=== PATIENT | male | born 1950 | race Caucasian/White ===

== ENCOUNTER 2023-06-16 09:50 | Outpatient (CLI) | payer MEDICARE, SELFPAY ==
--- NOTE | ~2023-06-16 | NM_ITS ---
EXAMINATION: NM pancho stress w perfusion DATE: 06/16/2023 12:03 INDICATION: Other forms of dyspnea. TECHNIQUE: Rest images were obtained following intravenous administration of 10 mCi Tc99m tetrofosmin (Myoview). The patient was infused intravenously with Lexiscan (regadenoson). Then, 29.3 mCi Tc99m t etrofosmin (Myoview) was administered intravenously, and stress images were obtained. Data was recons tructed into short axis and horizontal and vertical long axis SPECT images. Gated SPECT images were a lso obtained. COMPARISON: None. FINDINGS: There is no definite reversible or fixed perfusion abnormality to suggest ischemia or infar ction. There is no segmental wall motion abnormality. Left ventricular ejection fraction measures 7 0%. IMPRESSION: 1. No definite ischemia or infarct. 2. Normal left ventricular ejection fraction measuring 70%. Reviewed, dictated and finalized at location A. TING ADVISER
--- NOTE | 2023-06-16 10:30 | EST_ITS ---
Patient Info Name: Wily Sahu Age: 73 years : 1950 Gender: Male Ht: 71 in Wt: 202 lbs BSA: 2.16 m2 HR: 70 bpm BP: 154 / 85 mmHg Exam Date: 06/16/2023 11:16 AM Exam Location: Echo Lab Patient Status: Outpatient Admit Date: 06/16/2023 Staff Ordering Physician: Clifton Wiley DO Attending Provider: Clifton Wiley DO Exercise Technologist: Nancy Buchanan [facility] Exercise Physician: Clifton Wiley DO Exam Type: CA stress pancho w NM Study Info A regadenoson stress test was performed. Summary 1. 1. Negative lexiscan stress test for ischemic ST changes by ECG criteria. 2. 2. Baseline hypertension. 3. 3. Nuclear scan to follow and will be reported separately. Please correlate with it. 4. 4. Patient informed of the above results. Protocol: Lexiscan Stress ECG Details Stage: REST Duration (min): 2 min : 12 sec HR (bpm): 71 SBP (mmHg): 154 DBP (mmHg): 85 Stage: REST Duration (min): 13 min : 29 sec HR (bpm): 75 SBP (mmHg): 154 DBP (mmHg): 85 Stage: STAGE 1 Duration (min): 1 min : 0 sec HR (bpm): 78 SBP (mmHg): 167 DBP (mmHg): 75 Stage: RECOVERY Duration (min): 1 min : 0 sec HR (bpm): 91 SBP (mmHg): 167 DBP (mmHg): 75 Stage: RECOVERY Duration (min): 2 min : 0 sec HR (bpm): 82 SBP (mmHg): 167 DBP (mmHg): 75 Stage: RECOVERY Duration (min): 3 min : 0 sec HR (bpm): 83 SBP (mmHg): 155 DBP (mmHg): 74 Stage: RECOVERY Duration (min): 3 min : 7 sec HR (bpm): 82 SBP (mmHg): 155 DBP (mmHg): 74 Rest HR: 75 bpm Peak HR: 91 bpm Rest Sys BP: 154 mmHg Peak Sys BP: 167 mmHg Max Pred HR: 149 bpm % Max Pred HR: 61 % Target HR: 127 bpm Max RPP: 15,197 bpm*mmHg Termination Reason: Completed protocol Cardiac Symptoms: Shortness of breath Total Time: 1 min : 0 sec Rest Hidalgo BP: 85 mmHg Peak [place] BP: 75 mmHg Total Dose: 0.4 mg Resting ECG Sinus rhythm with sinus arrhythmia. Stress ECG No ST changes. Arrhythmias None. Report Signatures
== END 2023-06-16 09:51 | disposition home or self-care (01) ==
PROVIDERS: PCP Family Medicine; Visit Provider Internal Medicine Cardiovascular Disease
DX: R06.09 Other forms of dyspnea (principal)
CPT/HCPCS: 78452; 93017; A9502; J2785

== ENCOUNTER 2023-09-01 07:54 | Outpatient (CLI) | payer MEDICARE, SELFPAY ==
[2023-09-01 08:59] LABS: Basophils Percent Auto 0.7 % (0.2-1.2); Eosinophils Absolute Auto 0.2 K/mm3 (0-0.3); Hematocrit 42.8 % (42.0-52.0); Hemoglobin 14.8 g/dL (14.0-18.0); Immature Granulocyte Absolute 0.01 K/mm3 (0.00-0.031); Immature Granulocyte Percent A 0.2 % (0-0.5); Lymphocytes Absolute Auto 1.29 K/mm3 (0.9-3.2); Lymphocytes Percent Auto 21.2 % (18.3-44.2); Mean Corpuscular HGB Conc 34.6 g/dl (32-36); Mean Corpuscular Hemoglobin 31.4 pg (26-34); Mean Corpuscular Volume 90.7 fl (80-100); Mean Platelet Volume 9.1 fl (7.4-10.4); Monocytes Absolute Auto 0.6 K/mm3 (0.1-0.6); Monocytes Percent Auto 9.5 % (2.6-8.5); Neutrophils Percent Auto 65.4 % (45.5-73.1); Platelet Count Result 201 k/mm3 (150-375); Red Blood Count 4.72 M/mm3 (4.6-6.20); Red Cell Distribution Width 12.6 % (11.5-14.5); White Blood Count 6.1 K/mm3 (4.5-10.0)
[2023-09-01 09:10] LABS: Albumin Level 4.5 g/dL (3.5-5.1); Anion Gap 4 mmol/L (4-12); Blood Urea Nitrogen 19 mg/dL (9-20); Calcium 9.1 mg/dL (8.4-10.2); Carbon Dioxide 29 mmol/L (22-30); Chloride 101 mmol/L (98-107); Estimated Glomerular Filt Rate > 60; Glucose 118 mg/dL (65-110); Potassium 4.4 mmol/L (3.4-5.0); Sodium 134 mmol/L (137-145)
[2023-09-01 09:13] LABS: Urine Cotinine NEGATIVE
== END 2023-09-01 07:55 | disposition home or self-care (01) ==
PROVIDERS: PCP Family Medicine; Visit Provider Orthopaedic Surgery
DX: M17.12 Unilateral primary osteoarthritis, left knee (principal); Z01.818 Encounter for other preprocedural examination
CPT/HCPCS: 80048; 80307; 82040; 83036; 85025; 87081; 87147; 87181

== ENCOUNTER 2023-09-18 01:05 | Day surgery (SDC) | payer MEDICARE, SELFPAY ==
[2023-09-01 08:10] VITALS: BMI 28.5
--- NOTE | 2023-09-01 08:25 | PC.NURSE ---
Report to the Outpatient Waiting Room, entrance under the green pavilion located off [facility], at time _0600 on date __09/18/23 . Planned Procedure Time: __729 . Time changes happen often and if your time is changed the preop area will call you the afternoon before. - You and your visitor will be asked to self-screen and do not enter if you have any COVID symptoms. - A mask is optional within the hospital at this time. Patients may have clear liquids (water, carbonated beverages, clear teas, apple juice) until 3 hours prior to surgery( 4:30AM) with a maximum of 20 ounces. - No food from midnight until time of surgery - Infants may have breast milk until 4 hours before surgery, formula 6 hours prior to surgery. - Children will be allowed to drink immediately following surgery. If applicable, please bring a bottle or sippy cup to assist with drinking. Juice, water, soda, and popsicles are readily available. For infants on formula, please bring formula the day of surgery. Pacifiers are allowed. Take the following medications with a SIP of water the morning of surgery: __AMLODIPINE,METOPROLOL DO NOT STOP ANY OF YOUR OTHER PRESCRIPTION MEDICATIONS PRIOR TO SURGERY ?EXCEPT THE FOLLOWING Medications to discontinue per physician __PT STATES HOLD MELOXICAM,NIACIN AND FISH OIL 7 DAYS PRE OP PER DR COULTER. LAST DOSE 09/10/23____HOLD ALL VITAMINS AND SUPPLEMENTS 3 DAYS PRE OP PER ANESTHESIA LAST DOSE TOTAL JOINT CLASS 09/03 23 AT 10 AM Please no make-up, nail algerian, hairspray, perfume, deodorant, or body powder the day of surgery. No jewelry (including any body piercings) or valuables the day of surgery, leave them at home. Please take a shower or bath the night before, or the morning of, surgery with an antibacterial soap. Wear comfortable, loose fitting clothing. Children are encouraged to wear pajamas. - Jewelry must be removed prior to entering the operating room. Rings and piercings that are not removed may be cut off. - The hospital will not accept responsibility for valuables. - Please leave all valuables, including medications, at home the day of surgery. If you are going home after surgery, a licensed commercial driver must drive you home. - NO public transportation without another adult if you receive anesthesia. - We recommend that an adult stay with you for 24 hours following discharge. - We also recommend that you do not drive, make important decision, drink alcoholic beverages, or take any drugs that were not prescribed by your health care provider for at least 24 hours after your discharge time Follow any additional instructions given to you from your surgeon. If you or anyone in your household have experienced Covid symptoms in the past week, please notify your surgeon or the nurse liaison at the phone number below for possible testing. VERBAL AND WRITTEN instructions given to __PATIENT and asked if any additional questions and then verbalized understanding. Patient advised to call surgeon office or pre surgery nurse liaison [phone] if any additional questions.
[2023-09-01 08:44] VITALS: BP 140/78; PULSE 72; RESP 18; TEMP 36.9; O2SAT 99
--- NOTE | 2023-09-17 09:53 | PM.IMHP ---
H&P: HPI History of Present Illness Date/Time: 09/17/23 09:53 Chief Complaint: Severe bicompartmental osteoarthritis left Narrative: patient is a 73-year-old gentleman who presents for total knee arthroplasty left knee. He has a long history of difficulties with his left knee. [facility] view x-rays from 04/12/2023 show Severe medial and lateral compartment bicompartmental osteoarthritis in left knee with grooving in the medial compartment which is mlyg-cy-fadg and less than 1 mm remaining joint space in the lateral compartment. Is been utilizing non operative strategies which are no longer him relief and he would prefer to proceed with total knee arthroplasty rather than continue living with this. He did see the general sales manager before surgery and had a stress test which was negative. He is no longer taking baby aspirin. [facility] Past Medical History Medical History (Updated 09/17/23 @ 09:58 by Da Hood MD) Afib Family History Family History Father Family history of Parkinson's disease Mother Family history of Alzheimer's disease Social History Social History (Updated 08/22/23 @ 07:54 by Joslyn Ramsay CMA) Smoking packs per day: 1.5 Smoking cigarettes per day: 30.0 Years smoked: 5 Smoking pack-years: 7.50 Smoking status: Former smoker Tobacco type: cigarettes Smoking end date: 05/19/71 Alcohol intake: current Drinks per week: 24 Alcohol use details: BEER Substance use type: does not use Do You Feel Safe in your Home?: Yes Lack of Transportation: No Lack of Food: Never True Current Housing: I Have Housing Concerned About Future Housing: No Difficulty Paying Gas/Electric Bills: No Difficulty Paying for Meds: No Currently Unemployed: No Education: High School Diploma/GED Difficulty w/ Childcare or Family Care: No Living arrangements: with family Occupation/Education: occupation Additional occupation/education comments: ground maintenance Spiritual care concerns: No Meds Home Medications and Allergies Home Medications Medication Instructions Recorded Confirmed Type amlodipine 5 mg tablet 5 mg PO DAILY 05/30/23 09/01/23 History lisinopril 20 1 tablet PO DAILY 05/30/23 09/01/23 History mg-hydrochlorothiazide 12.5 mg tablet metoprolol succinate 50 mg 50 mg PO DAILY 05/30/23 09/01/23 History tablet,extended release 24 hr omega 0-yws-yoq-fish oil 100 1 cap PO DAILY 08/22/23 09/01/23 History mg-160 mg-1,000 mg capsule (Fish Oil) calcium 500 mg tablet 500 mg PO DAILY 09/01/23 09/01/23 History cholecalciferol (vitamin D3) 125 125 mcg PO DAILY 09/01/23 09/01/23 History mcg (5,000 unit) tablet cyanocobalamin (vitamin B-12) 1,000 mcg PO DAILY 09/01/23 09/01/23 History 1,000 mcg capsule meloxicam 15 mg tablet 15 mg PO DAILY 09/01/23 09/01/23 History niacin 50 mg tablet 50 mg PO DAILY 09/01/23 09/01/23 History vitamin E 100 unit capsule 180 mg PO DAILY 09/01/23 09/01/23 History mupirocin 2 % topical ointment 1 applic topical BID #22 grams 09/08/23 Rx Allergies Allergy/AdvReac Type Severity Reaction Status Date / Time doxycycline Allergy Unknown Rash Verified 09/01/23 08:11 tetracycline Allergy Unknown Rash Verified 09/01/23 08:11 Exam Narrative: On examination he is a pleasant gentleman in no acute distress. He is alert and oriented. He is 5 ft 10 in in height 208 lb. He has a large effusion and positive Ana's exam suggesting prior ACL injury. Mild lateral laxity to varus stress. Range of motion 0-135. Tenderness along the mediolateral joint lines. He has full range of motion of his left hip without discomfort. Negative Stinchfield maneuver. 5/5 quadriceps strength. 2+ dorsalis pedis and posterior artery pulses were palpable. Normal sensation. Skin looked healthy and no lower extremity edema. He walks with minimal limp. Heart and lung auscultatio
--- NOTE | 2023-09-17 12:52 | WPDANESEPPF ---
Anes - Initial Pre Proc Eval Procedure: Operation Date: 09/18/23 07:30 Proposed Procedures p Left Total Knee Arthroplasty - Da Hood MD Date/Time: 09/17/23 12:52 Surgeon: Da Hood MD Pre Op Diagnosis: O A Lt Knee Patient Data Age: 73 Gender: M Height: 1.8 m Weight: 92.9 kg Last Vital Signs Temp 36.9 C 09/01/23 08:44 Pulse 72 09/01/23 08:44 Resp 18 09/01/23 08:44 BP 140/78 09/01/23 08:44 Pulse Ox 99 09/01/23 08:44 O2 Del Method Room Air 09/01/23 08:44 Allergies Allergy/AdvReac Type Severity Reaction Status Date / Time doxycycline Allergy Unknown Rash Verified 09/18/23 06:59 tetracycline Allergy Unknown Rash Verified 09/18/23 06:59 Home Medications Medication Instructions Recorded Confirmed Type amlodipine 5 mg tablet 5 mg PO DAILY 05/30/23 09/01/23 History lisinopril 20 1 tablet PO DAILY 05/30/23 09/01/23 History mg-hydrochlorothiazide 12.5 mg tablet metoprolol succinate 50 mg 50 mg PO DAILY 05/30/23 09/01/23 History tablet,extended release 24 hr omega 8-uvm-kkv-fish oil 100 1 cap PO DAILY 08/22/23 09/01/23 History mg-160 mg-1,000 mg capsule (Fish Oil) calcium 500 mg tablet 500 mg PO DAILY 09/01/23 09/01/23 History cholecalciferol (vitamin D3) 125 125 mcg PO DAILY 09/01/23 09/01/23 History mcg (5,000 unit) tablet cyanocobalamin (vitamin B-12) 1,000 mcg PO DAILY 09/01/23 09/01/23 History 1,000 mcg capsule meloxicam 15 mg tablet 15 mg PO DAILY 09/01/23 09/01/23 History niacin 50 mg tablet 50 mg PO DAILY 09/01/23 09/01/23 History vitamin E 100 unit capsule 180 mg PO DAILY 09/01/23 09/01/23 History Patient hx anesthesia problems: none Family hx anesthesia problems: none Results Review: All pre-operative results and documents have been reviewed as part of the pre-operative evaluation. [facility] Past Medical History Medical History (Updated 09/17/23 @ 12:52 by Memo Null DO) Afib Hypertension Surgical History Surgical History (Updated 09/17/23 @ 12:52 by Memo Null DO) History of tonsillectomy Family History Family History Father Family history of Parkinson's disease Mother Family history of Alzheimer's disease Social History Social History (Updated 08/22/23 @ 07:54 by Joslyn Ramsay CMA) Smoking packs per day: 1.5 Smoking cigarettes per day: 30.0 Years smoked: 5 Smoking pack-years: 7.50 Smoking status: Former smoker Tobacco type: cigarettes Smoking end date: 05/19/71 Alcohol intake: current Drinks per week: 24 Alcohol use details: BEER Substance use type: does not use Do You Feel Safe in your Home?: Yes Lack of Transportation: No Lack of Food: Never True Current Housing: I Have Housing Concerned About Future Housing: No Difficulty Paying Gas/Electric Bills: No Difficulty Paying for Meds: No Currently Unemployed: No Education: High School Diploma/GED Difficulty w/ Childcare or Family Care: No Living arrangements: with family Occupation/Education: occupation Additional occupation/education comments: ground maintenance Spiritual care concerns: No Anes - Eval Final PreProcedure Day of Procedure 09/17/23 12:52 Patient weight: overweight Heart: regular rate and rhythm Lungs: clear to auscultation Airway: Mallampati scale class II Neurological: alert and oriented Last oral intake: >/= 8 hours ASA classification: III Emergent: no Anesthetic plan: proceed Anesthesia type and monitoring: general ETT and standard monitoring Results Review: All pre-operative results and documents have been reviewed as part of the pre-operative evaluation. Informed Consent: The patient's anesthetic plan and its attendant risks and benefits were discussed with the patient/family/POA. Questions were solicited and answers provided to the satisfaction of the patient/family/POA.
[2023-09-18] VITALS (14 sets, daily range): BP systolic 106–141; BP diastolic 63–112; PULSE 60–75; RESP 11–98; TEMP 36.4–36.8; O2SAT 20–100
--- NOTE | ~2023-09-18 | XR_ITS ---
EXAMINATION: [id number] DATE: 09/18/2023 12:03 CDT INDICATION: Left knee arthroplasty TECHNIQUE: 2 views left knee FINDINGS: There is a left total knee arthroplasty in expected position. Subcutaneous gas with fluid and air in the joint are consistent with recent surgery. No evidence of periprosthetic fracture. IMPRESSION: 1. Recent left total knee arthroplasty. Reviewed, dictated and finalized at location B.
[2023-09-18] MEDS: LACTATED RINGERS 1,000 ML 30 ML IV CONT ×2 (06:30→11:09)
[2023-09-18] MEDS: ACETAMINOPHEN 500 MG TABLET 1000 MG PO ×4 (06:30→23:37)
[2023-09-18] MEDS: TRANEXAMIC ACID 1,000MG/ISO100 1,000 MG/100 ML BAG 200 MG IVPB (06:35)
[2023-09-18] MEDS: VANCOMYCIN 1,500 MG/NS 500 ML BAG 250 MG IVPB (06:35)
--- NOTE | 2023-09-18 07:09 | WPDHPUPDATE1 ---
History and Physical Update Update Date/Time: 09/18/23 07:09 History and Physical has been reviewed, including an updated exam of the patient. There are NO changes in the patient's condition. Risks, benefits, and alternatives have been discussed and questions answered. Patient agrees to proceed with procedure.
[2023-09-18] MEDS: ceFAZolin 2 GM/D5W 50 ML 2 GM/50 ML BAG IVPB (07:43)
[2023-09-18] MEDS: SODIUM CHLORIDE 0.9% IV 37.7 ML, MORPHINE SULFATE INJ (*CRX) 2 MG, ROPivacaine HCL 1% 2... INFILTRATE (08:27)
[2023-09-18] MEDS: ceFAZolin SODIUM 1 GM VIAL 3 GM (08:27)
[2023-09-18] MEDS: GENTAMICIN BONE CEMENT REFOBACIN 1 EACH TOPICAL (09:30)
[2023-09-18] MEDS: TRANEXAMIC ACID 1,000 MG/10 ML AMPUL 1000 MG IV PUSH (09:48)
[2023-09-18] MEDS: ceFAZolin SODIUM 1 GM VIAL 2 GM IV PUSH (09:48)
--- NOTE | 2023-09-18 11:02 | W.PM.PROC2 ---
Procedure Note - Detailed Date of Procedure 09/18/23 Pre-op Diagnosis O A Lt Knee Post-op Diagnosis Same Procedure Performed Left total arthroplasty Surgeon Da Hood MD Anesthesia General Description of Procedure Patient was brought to the operating room and spinal anesthesia was administered. He received 2 g of Ancef weight based vancomycin 1 g of TXA preoperatively. The left leg was prepped draped usual fashion. He had flexion only to about 120. Limb was exsanguinated tourniquet elevated to 250 mmHg. A 7 in longitudinal incision was made in the standard parapatellar arthrotomy was utilized. A large effusion with clear fluid measuring 120 cc on the suction canister was evacuated and after this his flexion was much better to 140. In for a patellar fat pad partially excised. He had thick dense white synovium and a anterior synovectomy was performed including the medial and lateral gutters and deep surface of the quadriceps. The patella had osteophytes that were debrided otherwise had normal cartilage thickness except for far medial facet I felt this was most suitable for non resurfacing. He had [id number] degenerative changes both medially and laterally with grooving in the lateral femoral condyle of was fairly extensive complete absence of the ACL. A guide linnea was inserted down the femoral canal after aspiration of canal contents using the 5 degree valgus cutting bushing 9 mm of bone removed the distal femur. This removed about 7 laterally. Next the tibial plateau was cut removing about 2 mm of bone from the low point of the medial tibial plateau which removed about 8 mm from the lateral plateau. Cut was made perpendicular to the axis of the tibia. We in school remnants were excised the PCL was recessed. Posterior capsule release was not performed. Flexion gap measured 8 mm medially 12 mm laterally at 90?. The femoral sizing guide was applied to the knee set at external rotation 5? and posterior referencing pinholes were placed and the size 70 vanguard cutting block was applied AP and chamfer cuts were made in this gave appropriate cut the anterior cortex with no notch but no overhang. The 70 femur trial fit nicely. The CR tibial trial was placed 10 mm and there was 2 mm of play medially and laterally at 90?. The tibia was sized to a 79 placed at proper rotation and punched. There were 2 medial tibial osteophyte loose fragments that were removed but we did not otherwise to any medial capsule release from the medial plateau as he did not have a varus deformity preoperatively. We trialed with the 10 the knee came out to full extension and had a little bit more play than usual at 90?. We trialed with the 11 which had full passive flexion of 140 and had just full extension with 0.5 mm of medial play medially to laterally I thought that either would be appropriate. The posterior femoral osteophyte and loose body was removed from behind the posterior femoral condyle. Lug holes were drilled the femur. His bone was quite dense throughout. Step drill was used to make multiple perforations in the distal femur and tibial plateau the bony surfaces thoroughly irrigated and dried. Using 2 batches of methylmethacrylate 1 with gentamicin powder the cement was applied the 79 vanguard tibial component and then the size 70 left CR femoral component cement applied the tibial plateau pressurized and tibial component fully seated. Cement applied the femur and the femoral component fully seated the knee brought into extension with 11 mm 5 1 insert and a cement pressurized. Tourniquet was released at approximately 95 minutes. After cement hardening excess cement was sought for removed hemostasis was achieved. We trialed the 11 1st and this had 1 mm of medial opening in full extension with negative bounce 2 mm at 10? of flexion medially and 2-3 mm of lateral opening and excellent anterior drawer stability throughout gravity flexion to 140 central patella
--- NOTE | 2023-09-18 12:30 | ADMGEN ---
This patient, Wily Sahu II, was admitted to Medical Room 252-01. Patient/family oriented to hospital policies and general routines including ID bracelet, bed and alarms, visiting hours, pain management, procedures, bathroom and other care routines, personal items, smoking policy, room service/diet, and visiting hours. Information on how to activate the Rapid Response Team has been discussed. Patient/Family are encouraged to report perceived risks to care and to ask questions if they do not understand what they are told or what they should do.
[2023-09-18] MEDS: KETOROLAC 15 MG/ML VIAL (*BKC) IV PUSH ×3 (13:49→23:37)
[2023-09-18] MEDS: oxyCODONE HCL (*CRX) 5 MG TAB IR PO ×4 (13:50→23:38)
[2023-09-18] MEDS: ceFAZolin 1 GM/NS 50 ML 1 GM/50 ML BAG IVPB ×2 (15:17→23:13)
[2023-09-18] MEDS: VANCOMYCIN 1,000 MG/NS 250 ML 1,000 MG/250 ML BAG 250 MG IVPB (17:07)
[2023-09-19 02:01] VITALS: BP 119/61; PULSE 65; RESP 20; TEMP 36.7; O2SAT 99
[2023-09-19 05:03] LABS: Basophils Percent Auto 0.1 % (0.2-1.2); Hematocrit 34.5 % (42.0-52.0); Hemoglobin 12.1 g/dL (14.0-18.0); Immature Granulocyte Absolute 0.04 K/mm3 (0.00-0.031); Immature Granulocyte Percent A 0.3 % (0-0.5); Lymphocytes Absolute Auto 0.68 K/mm3 (0.9-3.2); Lymphocytes Percent Auto 5.8 % (18.3-44.2); Mean Corpuscular HGB Conc 35.1 g/dl (32-36); Mean Corpuscular Hemoglobin 31.8 pg (26-34); Mean Corpuscular Volume 90.6 fl (80-100); Mean Platelet Volume 9.2 fl (7.4-10.4); Monocytes Absolute Auto 0.9 K/mm3 (0.1-0.6); Monocytes Percent Auto 7.3 % (2.6-8.5); Neutrophils Absolute Auto 10.1 K/mm3 (1.3-6.7); Neutrophils Percent Auto 86.5 % (45.5-73.1); Platelet Count Result 180 k/mm3 (150-375); Red Blood Count 3.81 M/mm3 (4.6-6.20); Red Cell Distribution Width 12.4 % (11.5-14.5); White Blood Count 11.7 K/mm3 (4.5-10.0)
[2023-09-19 05:16] LABS: Anion Gap 1 mmol/L (4-12); Blood Urea Nitrogen 19 mg/dL (9-20); Calcium 8.5 mg/dL (8.4-10.2); Carbon Dioxide 28 mmol/L (22-30); Chloride 106 mmol/L (98-107); Estimated CRCL calculation 89 ml/min; Estimated Glomerular Filt Rate > 60; Glucose 140 mg/dL (65-110); Potassium 4.6 mmol/L (3.4-5.0); Sodium 135 mmol/L (137-145)
[2023-09-19] MEDS: ACETAMINOPHEN 500 MG TABLET 1000 MG PO (05:18)
[2023-09-19] MEDS: VANCOMYCIN 1,000 MG/NS 250 ML 1,000 MG/250 ML BAG 250 MG IVPB (05:18)
[2023-09-19 06:01] VITALS: BP 115/62; PULSE 63; RESP 20; TEMP 36.5; O2SAT 98
[2023-09-19] MEDS: ceFAZolin 1 GM/NS 50 ML 1 GM/50 ML BAG IVPB (06:46)
--- NOTE | 2023-09-19 07:14 | WPDANESPN ---
Anes - Prog Note Post-Op Date/Time: 09/19/23 07:14 Cardiovascular status: normal Respiratory status: normal Airway patency: baseline Mental status: baseline Post-Op hydration status: normal Vital Signs: Last Vital Signs Temp 97.7 F 09/19/23 06:01 Pulse 63 09/19/23 06:01 Resp 20 09/19/23 06:01 BP 115/62 09/19/23 06:01 Pulse Ox 98 09/19/23 06:01 O2 Del Method Room Air 09/18/23 20:15 O2 Flow Rate 10 09/18/23 11:20 Pain Score (VAS): 3-4. Doing well I/O: Intake & Output 09/18/23 09/18/23 09/19/23 15:59 23:59 07:59 Intake Total 100 790 Balance 100 790 Laboratory Tests 09/19/23 04:46 09/19/23 04:45 09/18/23 09/19/23 09/19/23 06:26 04:45 04:46 WBC 11.7 H RBC 3.81 L Hgb 12.1 L Hct 34.5 L MCV 90.6 MCH 31.8 MCHC 35.1 RDW 12.4 Plt Count 180 MPV 9.2 Immature Gran % (Auto) 0.3 Neut % (Auto) 86.5 H Lymph % (Auto) 5.8 L [place] % (Auto) 7.3 Eos % (Auto) 0.0 Baso % (Auto) 0.1 L Lymph # (Auto) 0.68 L [place] # (Auto) 0.9 H Eos # (Auto) 0.0 Baso # (Auto) 0.0 Abs Immat Gran (auto) 0.04 H Absolute Neuts (auto) 10.1 H Absolute Nucleated RBC 0.000 Nucleated RBC % 0.0 Sodium 135 L Potassium 4.6 Chloride 106 Carbon Dioxide 28 Anion Gap 1 L BUN 19 Creatinine 0.70 Estim Creat Clear Calc 89 Estimated GFR > 60 Glucose 140 H Calcium 8.5 Antibody Screen Negative Post-procedural complaints: none Patient Feedback: Patient satisfied with anesthetic care.
--- NOTE | 2023-09-19 07:35 | PM.DS ---
DS: Admitting Diagnosis Discharge Date 09/19/2023 Admitting Diagnosis osteoarthritis left knee DS: Discharge Diagnosis Discharge Diagnosis (1) Status post left knee replacement: Code(s): Z96.652 - Presence of left artificial knee joint Status: Acute DS: Summary Hospital Course Hospital Course: patient was admitted overnight for recovery after left total knee arthroplasty yesterday. He has done very well his pain has been well controlled. He has excellent active range of motion of his knee today his wound is dry there is no blood in the dressing. His no swelling in the ankle or calf. Only mild swelling in the knee. He is neurologically intact. His laboratory studies show hemoglobin 12.1 mild acute blood loss anemia and BMP is normal. Time Spent with Patient Time attestation: Total time spent providing and/or coordinating discharge services: DS: Data Data Completed and Pending Labs on day of discharge: Labs from last 24 hours 09/19/23 09/19/23 04:46 04:45 WBC 11.7 H RBC 3.81 L Hgb 12.1 L Hct 34.5 L MCV 90.6 MCH 31.8 MCHC 35.1 RDW 12.4 Plt Count 180 MPV 9.2 Immature Gran % (Auto) 0.3 Neut % (Auto) 86.5 H Lymph % (Auto) 5.8 L [place] % (Auto) 7.3 Eos % (Auto) 0.0 Baso % (Auto) 0.1 L Lymph # (Auto) 0.68 L [place] # (Auto) 0.9 H Eos # (Auto) 0.0 Baso # (Auto) 0.0 Abs Immat Gran (auto) 0.04 H Absolute Neuts (auto) 10.1 H Absolute Nucleated RBC 0.000 Nucleated RBC % 0.0 Sodium 135 L Potassium 4.6 Chloride 106 Carbon Dioxide 28 Anion Gap 1 L BUN 19 Creatinine 0.70 Estim Creat Clear Calc 89 Estimated GFR > 60 Glucose 140 H Calcium 8.5 Discharge Plan Discharge Patient Disposition: Home, Self-Care Discharge Instructions: [facility] [address] [place] [address] [address] [place] [address] POST-OPERATIVE DISCHARGE INSTRUCTIONS TOTAL KNEE ARTHROPLASTY 1. When resting, do not rest in the chair.When resting, lie on your back, with back flat on the couch or bed, with leg elevated above heart to minimize swelling. You may put a pillow under your head. . Significant swelling could indicate a blood clot and if this occurs call the office (or go to the ER) to have a venous ultrasound. Therefore, do not rest in a chair. 2. At least five times a day spend several minutes stretching your knee into flexion while sitting in the chair and also stretching your knee out straight The abilities to bend your knee fulling and straighten your knee fully are two most important knee functions to focus on during your recovery. 3. It is ok to sit in chair to eat, use the toilet and receive a guest and to do your stretching exercises, but, sitting in a chair will cause your leg to swell. Therefore, avoid additional time sitting in the chair. and don't rest in the chair. 4. Wound Care: Nursing will give you an additional Mepilex dressing at the time of discharge. Patient to remove the dressing and apply a new Mepilex dressing at home 7 days after surgery and leave the dressing on until seen in office. It is normal to see a small amount of blood on the silver pad of the Mepilex dressing. Its designed to hold small spots of blood. However, if the blood reaches the edge of the pad up to the boarder of the clear membrane that surrounds the pad, the pad is saturated and the Mepilex dressing should be removed and a new Mepilex dressing should be applied. 5. May shower with a Mepilex dressing in place.The water will run off the dressing. 6. Unless you are told otherwise, you may put full weight on your operated leg. Use a walker for balance and practice walking as normally as you can, ideally for a few minutes every hour while you are awake. 7. I would advise against putting ice packs on your knee incision. Ice constricts blood flow which can impar healing of the knee incision. IMPORTANT:
[2023-09-19] MEDS: SENNA/DOCUSATE SODIUM TABLET 2 TAB PO (08:23)
[2023-09-19] MEDS: CYANOCOBALAMIN 1,000 MCG TABLET 1000 MCG PO (08:23)
[2023-09-19] MEDS: CELECOXIB 200 MG CAPSULE PO (08:23)
[2023-09-19] MEDS: amLODIPine BESYLATE 5 MG TABLET PO (08:23)
[2023-09-19] MEDS: NIACIN 50 MG TABLET PO (08:23)
[2023-09-19] MEDS: APIXABAN 2.5 MG TABLET PO (08:23)
[2023-09-19 08:24] VITALS: PULSE 66
[2023-09-19] MEDS: METOPROLOL SUCCINATE EXT REL 50 MG TABCR PO (08:24)
[2023-09-19] MEDS: oxyCODONE HCL (*CRX) 5 MG TAB IR PO (08:24)
[2023-09-19] MEDS: CHOLECALCIFEROL 1,000 UNITS TABLET 5000 UNITS PO (08:24)
[2023-09-19] MEDS: polyethylene glycoL 3350 17 GM POWD.PACK PO (08:25)
== END 2023-09-19 09:25 | disposition home or self-care (01) ==
LOC: ANHSURGERY 05:58 → ANH2MED 12:20
PROVIDERS: PCP Family Medicine; Visit Provider Orthopaedic Surgery
PROC: (CPT 27447; principal; 2023-09-18 07:30)
DX: M17.12 Unilateral primary osteoarthritis, left knee (principal); I48.91 Unspecified atrial fibrillation; I10 Essential (primary) hypertension; Z87.891 Personal history of nicotine dependence
CPT/HCPCS: 27447; 36415; 73560; 80048; 80307; 82040; 83036; 85025; 86850; 86900; 86901; 87081; 87147; 87181; 97110; 97116; 97161; 97165; 97535; A9270; C1713; C1776; J0171; J0690; J1100; J1885; J2270; J2405; J2704; J2795; J3010; J3370; J7120

== ENCOUNTER 2024-03-01 11:48 | Outpatient (CLI) | payer MEDICARE, SELFPAY ==
[2024-03-01 12:58] LABS: Basophils Percent Auto 0.8 % (0.2-1.2); Eosinophils Absolute Auto 0.2 K/mm3 (0-0.3); Eosinophils Percent Auto 2.9 % (0-4.4); Hematocrit 40.6 % (42.0-52.0); Hemoglobin 14.1 g/dL (14.0-18.0); Immature Granulocyte Absolute 0.01 K/mm3 (0.00-0.031); Immature Granulocyte Percent A 0.2 % (0-0.5); Lymphocytes Absolute Auto 1.54 K/mm3 (0.9-3.2); Lymphocytes Percent Auto 29.3 % (18.3-44.2); Mean Corpuscular HGB Conc 34.7 g/dl (32-36); Mean Corpuscular Volume 92.1 fl (80-100); Mean Platelet Volume 9.2 fl (7.4-10.4); Monocytes Absolute Auto 0.6 K/mm3 (0.1-0.6); Monocytes Percent Auto 10.9 % (2.6-8.5); Neutrophils Absolute Auto 2.9 K/mm3 (1.3-6.7); Neutrophils Percent Auto 55.9 % (45.5-73.1); Platelet Count Result 186 k/mm3 (150-375); Red Blood Count 4.41 M/mm3 (4.6-6.20); Red Cell Distribution Width 12.7 % (11.5-14.5); White Blood Count 5.3 K/mm3 (4.5-10.0)
[2024-03-01 13:08] LABS: Albumin Level 4.2 g/dL (3.5-5.1); Anion Gap 9 mmol/L (4-12); Blood Urea Nitrogen 16 mg/dL (9-20); Calcium 8.8 mg/dL (8.4-10.2); Carbon Dioxide 28 mmol/L (22-30); Chloride 99 mmol/L (98-107); Estimated Glomerular Filt Rate > 60; Glucose 117 mg/dL (65-110); Potassium 3.8 mmol/L (3.4-5.0); Sodium 136 mmol/L (137-145)
[2024-03-01 13:14] LABS: Urine Cotinine NEGATIVE
[2024-03-01 13:49] LABS: Hemoglobin A1C 5.1 % (<5.7)
== END 2024-03-01 11:49 | disposition home or self-care (01) ==
LOC: ANHSURGERY 11:51
PROVIDERS: PCP Family Medicine; Visit Provider Orthopaedic Surgery
DX: M17.11 Unilateral primary osteoarthritis, right knee (principal); Z01.818 Encounter for other preprocedural examination
CPT/HCPCS: 80048; 80307; 82040; 83036; 85025; 87081; 87181

== ENCOUNTER 2024-03-18 01:39 | Day surgery (SDC) | payer MEDICARE, SELFPAY ==
[2024-03-01 11:55] VITALS: BMI 28.4
--- NOTE | 2024-03-01 12:18 | PC.NURSE ---
Report to the Outpatient Waiting Room, entrance under the green pavilion located off [facility], at time 6 AM on date 03/18/24 . Planned Procedure Time: _7:30 AM .? Time changes happen often and if your time is changed the preop area will call you the afternoon before. - You and your visitor will be asked to self-screen and do not enter if you have any COVID symptoms. Please call surgeon if you need to reschedule. - A mask is optional within the hospital at this time. Patients may have clear liquids (water, carbonated beverages, clear teas, apple juice) until 3 hours prior to surgery( 4:30 AM) with a maximum of 20 ounces. - No food from midnight until time of surgery and no smoking - Infants may have breast milk until 4 hours before surgery, infant formula 6 hours prior to surgery. - Children will be allowed to drink immediately following surgery.? If applicable, please bring a bottle or sippy cup to assist with drinking. Juice, water, soda, and popsicles are readily available.? For infants on formula, please bring formula the day of surgery.? Pacifiers are allowed. Take only the following medications with a SIP of water on the morning of surgery: _AMLODIPINE,METOPROLOL DO NOT STOP ANY OF YOUR OTHER PRESCRIPTION MEDICATIONS PRIOR TO SURGERY EXCEPT THE FOLLOWING Medications to discontinue per physician PT STATES HOLD ASPIRIN,MELOXICAM,NIACIN,FISH OIL AND VITAMIN E 7 DAYS PRE OP PER DR COULTER LAST DOSE03/10/24 MAY TAKE TYLENOL IF NEEDED FOR PAIN. HOLD ALL OTHER VITAMINS 3 DAYS PRE OP .LAST DOSE03/14/24 Please no make-up, nail thai, hairspray, perfume, deodorant, or body powder the day of surgery.? No jewelry (including any body piercings) or valuables the day of surgery, leave them at home.? Please take a shower or bath the night before, or the morning of, surgery with an antibacterial soap.? Wear comfortable, loose fitting clothing.? Children are encouraged to wear pajamas. - Jewelry must be removed prior to entering the operating room.? Rings and piercings that are not removed may be cut off. - The hospital will not accept responsibility for valuables.? - Please leave all valuables, including medications, at home the day of surgery. If you are going home after surgery, a licensed customer service driver must drive you home.? - NO public transportation without another adult if you receive anesthesia. - We recommend that an adult stay with you for 24 hours following discharge. - We also recommend that you do not drive, make important decision, drink alcoholic beverages, or take any drugs that were not prescribed by your health care provider for at least 24 hours after your discharge time. Follow any additional instructions given to you from your surgeon. VERBAL AND WRITTEN instructions given to __PATIENT and asked if any additional questions and then verbalized understanding. Patient advised to call surgeon office or pre surgery nurse liaison [phone] if any additional questions.
[2024-03-01 12:29] VITALS: BP 153/81; PULSE 63; RESP 18; TEMP 36.9; O2SAT 100
--- NOTE | 2024-03-17 12:15 | P.HP_ITS ---
H&P: HPI History of Present Illness Date/Time: 03/17/24 12:15 Chief Complaint: Right knee DJD Narrative: 74 year old male who presents today for a right total knee arthroplasty. He underwent left total knee arthroplasty in September of this year. He had uneventful recovery and excellent results from it. Patient is very happy with his results. He feels that he is ready proceed with total knee arthroplasty on the right. Patient has severe medial compartment osteoarthritis in the knee. He has been on meloxicam in the past. He has had injections in the, none since September of this year. Review of Systems Review of Systems: All systems reviewed & are unremarkable except as noted in HPI and below PMFSH Past Medical History Medical History Afib Hypertension Surgical History Surgical History History of left knee replacement History of tonsillectomy Family History Family History Father Family history of Parkinson's disease Mother Family history of Alzheimer's disease Social History Social History (Updated 02/25/24 @ 12:55 by Joslyn Ramsay CMA) Smoking packs per day: 1.5 Smoking cigarettes per day: 30.0 Years smoked: 5 Smoking pack-years: 7.50 Smoking status: Former smoker Tobacco type: cigarettes Smoking end date: 05/19/74 Additional smoking assessment comments: DENIES ANY FORM OF TOBACCO USE Alcohol intake: current Drinks per week: 24 Alcohol use details: BEER Substance use type: does not use Current Housing: Decline to Answer Concerned About Future Housing: Decline to Answer Difficulty Paying Gas/Electric Bills: Decline to Answer Difficulty Paying for Meds: Decline to Answer Currently Unemployed: Decline to Answer Education: Decline to Answer Difficulty w/ Childcare or Family Care: Decline to Answer Living arrangements: with family Occupation/Education: occupation Additional occupation/education comments: ground maintenance Spiritual care concerns: No Meds Home Medications and Allergies Home Medications Medication Instructions Recorded Confirmed Type amlodipine 5 mg tablet 5 mg PO DAILY 05/30/23 03/01/24 History lisinopril 20 1 tablet PO DAILY 05/30/23 03/01/24 History mg-hydrochlorothiazide 12.5 mg tablet metoprolol succinate 50 mg 50 mg PO DAILY 05/30/23 03/01/24 History tablet,extended release 24 hr cholecalciferol (vitamin D3) 125 125 mcg PO DAILY 09/01/23 03/01/24 History mcg (5,000 unit) tablet cyanocobalamin (vitamin B-12) 1,000 mcg PO DAILY 09/01/23 03/01/24 History 1,000 mcg capsule niacin 50 mg tablet 50 mg PO DAILY 09/01/23 03/01/24 History vitamin E 100 unit capsule 180 mg PO DAILY 09/01/23 03/01/24 History acetaminophen 500 mg tablet 1,000 mg PO Q6H #120 tabs 09/19/23 03/01/24 Rx ascorbate calcium (vitamin C) 500 500 mg PO DAILY 02/25/24 03/01/24 History mg tablet aspirin 81 mg capsule 81 mg PO DAILY 02/25/24 03/01/24 History meloxicam 7.5 mg tablet 7.5 mg PO DAILY 02/25/24 03/01/24 History omega 7-hwr-ysr-fish oil 60 mg-90 1 cap PO DAILY 02/25/24 03/01/24 History mg-500 mg capsule (Fish Oil) mupirocin 2 % topical ointment 1 applic topical BID #22 grams 03/03/24 Rx Allergies Allergy/AdvReac Type Severity Reaction Status Date / Time doxycycline Allergy Unknown Rash Verified 03/01/24 11:57 tetracycline Allergy Unknown Rash Verified 03/01/24 11:57 Exam Narrative: 74-year-old male very alert pleasant. H e is 5 ft 10 188 lb BMI is 28.4. Right knee range of motion is from 0-140 degrees. He has moderately large effusion. Mild tenderness over the medial joint line to palpation. Hip range of motion is full without discomfort, negative Stinchfield maneuver. He has normal quad strength. 2+ posterior tibial pulse absent dorsalis pedis pulse. Normal sensation to the right lower extremity, no edema. He walks well without limp. Resp: Auscultation: clear to auscultation bilaterally Cardio: Rate: regular rate Rhythm: regular rhythm Assessment and Plan Assessment and plan (1) Right knee DJD: Code(s): M17.11 - Unilateral primary osteoarthritis, right knee Status: Acute Assessment and Plan: 74-year-old male who is severe medial compartment osteoarthritis the right knee with continued symptoms. Patient did very well with his left total knee arthroplasty and is ready proceed with a right. Surgical procedures well as the risks and complications were reviewed. Patient will stop the meloxicam as well as his baby aspirin 1 week prior to surgery. We will plan on using Eliquis for DVT prophylaxis. We used meloxicam postoperatively instead of Celebrex with him. Patient's hemoglobin is 14.1 platelets were 186. Chem panel is within normal limits creatinine is 0.80. Patient did grow oxacillin sensitive Staph aureus from his nasal swab. He has been Decolonizing.
--- NOTE | 2024-03-17 15:05 | WPDANESEPPF ---
Anes - Initial Pre Proc Eval Procedure: Operation Date: 03/18/24 07:30 Proposed Procedures p Right Total Knee Arthroplasty - Da Hood MD Date/Time: 03/17/24 15:05 Surgeon: Da Hood MD Pre Op Diagnosis: O A Rt Knee Patient Data Age: 74 Gender: M Height: 1.78 m Weight: 89.8 kg Last Vital Signs Temp 98.5 F 03/01/24 12:29 Pulse 63 03/01/24 12:29 Resp 18 03/01/24 12:29 BP 153/81 H 03/01/24 12:29 Pulse Ox 100 03/01/24 12:29 O2 Del Method Room Air 03/01/24 12:29 Allergies Allergy/AdvReac Type Severity Reaction Status Date / Time doxycycline Allergy Unknown Rash Verified 03/18/24 06:57 tetracycline Allergy Unknown Rash Verified 03/18/24 06:57 Home Medications Medication Instructions Recorded Confirmed Type amlodipine 5 mg tablet 5 mg PO DAILY 05/30/23 03/18/24 History lisinopril 20 1 tablet PO DAILY 05/30/23 03/18/24 History mg-hydrochlorothiazide 12.5 mg tablet metoprolol succinate 50 mg 50 mg PO DAILY 05/30/23 03/18/24 History tablet,extended release 24 hr cholecalciferol (vitamin D3) 125 125 mcg PO DAILY 09/01/23 03/18/24 History mcg (5,000 unit) tablet cyanocobalamin (vitamin B-12) 1,000 mcg PO DAILY 09/01/23 03/18/24 History 1,000 mcg capsule niacin 50 mg tablet 50 mg PO DAILY 09/01/23 03/18/24 History vitamin E 100 unit capsule 180 mg PO DAILY 09/01/23 03/18/24 History acetaminophen 500 mg tablet 1,000 mg PO Q6H #120 tabs 09/19/23 03/18/24 Rx ascorbate calcium (vitamin C) 500 500 mg PO DAILY 02/25/24 03/18/24 History mg tablet aspirin 81 mg capsule 81 mg PO DAILY 02/25/24 03/18/24 History meloxicam 7.5 mg tablet 7.5 mg PO DAILY 02/25/24 03/18/24 History omega 0-oaw-yky-fish oil 60 mg-90 1 cap PO DAILY 02/25/24 03/18/24 History mg-500 mg capsule (Fish Oil) mupirocin 2 % topical ointment 1 applic topical BID #22 grams 03/03/24 03/18/24 Rx Patient hx anesthesia problems: none Family hx anesthesia problems: none Results Review: All pre-operative results and documents have been reviewed as part of the pre-operative evaluation. [facility] Past Medical History Medical History Afib Hypertension Surgical History Surgical History History of left knee replacement History of tonsillectomy Family History Family History Father Family history of Parkinson's disease Mother Family history of Alzheimer's disease Social History Social History (Updated 02/25/24 @ 12:55 by Joslyn Ramsay CMA) Smoking packs per day: 1.5 Smoking cigarettes per day: 30.0 Years smoked: 5 Smoking pack-years: 7.50 Smoking status: Former smoker Tobacco type: cigarettes Smoking end date: 05/19/74 Additional smoking assessment comments: DENIES ANY FORM OF TOBACCO USE Alcohol intake: current Drinks per week: 24 Alcohol use details: BEER Substance use type: does not use Current Housing: Decline to Answer Concerned About Future Housing: Decline to Answer Difficulty Paying Gas/Electric Bills: Decline to Answer Difficulty Paying for Meds: Decline to Answer Currently Unemployed: Decline to Answer Education: Decline to Answer Difficulty w/ Childcare or Family Care: Decline to Answer Living arrangements: with family 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 Informed Consent: The patient's anesthetic plan and its attendant risks and benefits were discussed with the patient/family/POA. Questions were solicited and answers provided to the satisfaction of the patient/family/POA.
[2024-03-18] VITALS (23 sets, daily range): BP systolic 103–142; BP diastolic 57–104; PULSE 57–77; RESP 11–20; TEMP 36.1–36.9; O2SAT 97–100; BMI 27.1
--- NOTE | ~2024-03-18 | XR_ITS ---
EXAMINATION: [id number] DATE: 03/18/2024 11:16 INDICATION: Postoperative evaluation following right total knee arthroplasty. TECHNIQUE: Anteroposterior and lateral views of the right knee were obtained. COMPARISON: None. FINDINGS: Right total knee arthroplasty with patellar resurfacing appears well seated and in near anatomic alig nment. No fractures identified. Expected postoperative subcutaneous and intra-articular gas. IMPRESSION: 1. Right total knee arthroplasty, negative for postoperative purposes. Reviewed, dictated and finalized at location A.
[2024-03-18] MEDS: LACTATED RINGERS 1,000 ML 30 ML IV CONT ×2 (06:30→11:15)
[2024-03-18] MEDS: ACETAMINOPHEN 500 MG TABLET 1000 MG PO (06:45)
[2024-03-18] MEDS: VANCOMYCIN 1,250 MG/NS 250 ML BAG 166.67 MG IVPB (06:45)
[2024-03-18] MEDS: TRANEXAMIC ACID 1,000MG/ISO100 1,000 MG/100 ML BAG 200 MG IVPB (06:45)
--- NOTE | 2024-03-18 07:23 | WPDHPUPDATE1 ---
History and Physical Update Update Date/Time: 03/18/24 07:23 History and Physical has been reviewed, including an updated exam of the patient. There are NO changes in the patient's condition. Risks, benefits, and alternatives have been discussed and questions answered. Patient agrees to proceed with procedure.
[2024-03-18] MEDS: ceFAZolin 2 GM/D5W 50 ML 2 GM/50 ML BAG IVPB ×2 (08:05→17:35)
[2024-03-18] MEDS: SODIUM CHLORIDE 0.9% IV 37.7 ML, MORPHINE SULFATE INJ (*CRX) 2 MG, ROPivacaine HCL 1% 2... INFILTRATE (08:43)
[2024-03-18] MEDS: ceFAZolin SODIUM 1 GM VIAL 3 GM (08:45)
[2024-03-18] MEDS: GENTAMICIN BONE CEMENT REFOBACIN 1 EACH TOPICAL (10:06)
[2024-03-18] MEDS: TRANEXAMIC ACID 1,000 MG/10 ML AMPUL 1 MG IV PUSH (10:12)
[2024-03-18] MEDS: ceFAZolin SODIUM 1 GM VIAL 2 GM IV PUSH (10:16)
--- NOTE | 2024-03-18 11:06 | W.PM.PROC2 ---
Procedure Note - Detailed Date of Procedure 03/18/24 Pre-op Diagnosis O A Rt Knee Post-op Diagnosis Same Procedure Performed Right total knee arthroplasty Surgeon Da Hood MD Rotational Moulding Operator Sandra Anesthesia General Description of Procedure Patient was brought to the operating room and spinal anesthesia was administered. He received 2 g of Ancef weight based vancomycin 1 g of TXA preoperatively. The right leg was prepped draped usual fashion. Limb was exsanguinated and tourniquet elevated to 250 mmHg. A 7 in longitudinal incision was made and a standard parapatellar arthrotomy utilized. Partial excision of infrapatellar fat pad was carried out. He had extensive thick white hypertrophic synovium and a synovectomy was performed with quadriceps synovectomy as well. The patella showed eburnation centrally and was arthritic. I felt resurfacing would be the best option for this side. It measured 26 mm in thickness and was cut to 17 mm. Protector cap was applied. A guide linnea was inserted on femoral canal after aspiration of canal contents using the 5 degree valgus cutting bushing 9 mm of bone removed the distal femur. Next the tibial plateau was cut making a cut just under the low point of the wear area in the posteromedial tibial plateau. There was eburnation both on the medial femoral condyle and lateral femoral condyle posteriorly. Meniscal remnants were excised and the PCL was recessed. The flexion gap measured a tight 10 mm medially and tight 14 mm laterally. Femoral sizing guide was applied set at 5? of external rotation which matched Whitesides line. The size 70 cutting block was utilized. AP and chamfer cuts were made in the 70 fit nicely. We trialed with the 10 CR insert there was 2 mm of play medially and laterally at 90? and the knee came out to full extension. Alignment of the tibial cut was confirmed to be accurate and we confirmed that the cut surfaces perfectly flat. We sized to a size 79 tibia which fit line to line posterolateral to anteromedial. This was punched and we trialed. The size 11 insert allowed near full extension. There was a negative bounce that lacked 1 or 2? with 2 mm of medial and lateral opening each and appropriate anterior drawer stability at 90?. Posterior femoral osteophytes were then removed. We did not aggressively resect medial tibial osteophyte other than trimming the protruding anteromedial tibial osteophyte the pain which was smoothed. We read trialed and this time the knee came out to full extension again with 2 mm medial and lateral opening each and with the arthrotomy towel clip, the knee still came out to full extension with negative bounce 2 or 3 mm of anterior drawer and gravity flexion 140 with the arthrotomy towel clip and the size 11 insert. Lug holes were drilled in the femur. The patella was sized to the 34 lug holes drilled and the 34 thick patella restored 26 mm in thickness. The patella fit line to line proximal to distal medially where the patella was shorter in dimension. Patellar tracking was fair with the tourniquet up. The step drill was used to make multiple perforations in the distal femur and tibial plateau the bony surfaces thoroughly irrigated and dried. Using 2 batches of methylmethacrylate 1 the gentamicin powder, the cement was immediately applied to the 79 vanguard tibial component and then the size 70 right CR vanguard femoral component cement applied the tibial plateau pressurized tibial plateau fully seated cement applied the femur the femoral component fully seated the knee brought into extension with a 12 mm 5 and 1 insert for cement Pressurization. The 34 x 8.6 mm patellar button was cemented. Tourniquet was released at approximately 95 minutes. After cement hardening excess cement was sought for and removed and hemostasis was achieved. On trialing we determined that the 11 mm was appropriate matching all of the range of motion and stability parameters discussed above. The size 11 insert was placed without difficulty locked locking pin range of motion stability and perfect patellar tracking throughout range of motion was observed. Local anesthetic cocktail was injected. The wound was closed with 2. Vicryl 1. Unidirectional barbed Stratafix suture the skin with 2 subcutaneous Vicryl 3-0 subcuticular Monocryl and glue. EBL was 250 cc. Additional 2 g of Ancef and 1 g TXA given time wound closure. There were no complications he was transferred postop recovery room in good condition. [facility] Billing Surgery - Charge Forward: Surgery Billing (Right total knee arthroplasty)
[2024-03-18] MEDS: KETOROLAC 15 MG/ML VIAL (*BKC) IV PUSH ×2 (11:25→17:35)
--- NOTE | 2024-03-18 11:25 | PM.OP ---
Procedure Note - Brief Procedure Note - Brief Date of procedure: 03/18/24 O A Rt Knee Procedure performed: Right total knee arthroplasty Surgeon: DESIREE Weiner Findings: 74-year-old male who underwent right total knee arthroplasty on 03/18. I was involved in the procedure including positioning the patient on the OR table in 1st assisting through the time of surgery. Total time spent was 3-1/2 hours
[2024-03-18] MEDS: oxyCODONE HCL (*CRX) 5 MG TAB IR PO ×3 (16:03→23:59)
[2024-03-18] MEDS: ACETAMINOPHEN 325 MG TABLET 650 MG PO ×3 (16:03→23:59)
[2024-03-18] MEDS: SODIUM CHLORIDE 0.9% IV 1,000 ML 125 ML IV CONT (16:03)
[2024-03-18] MEDS: SENNA/DOCUSATE SODIUM TABLET 2 TAB PO (16:04)
--- NOTE | 2024-03-18 16:10 | P.CONIM_ITS ---
Assessment and Plan Assessment and plan (1) Right knee DJD: Qualifiers: Osteoarthritis type: primary Qualified Code(s): M17.11 - Unilateral primary osteoarthritis, right knee Code(s): M17.11 - Unilateral primary osteoarthritis, right knee Status: Acute Assessment and Plan: Underwent a total right knee arthroplasty on 03/18. - ambulate with assistance and up to chair - start IS - SCDs, start Eliquis on 03/19 - neurovasc checks - see order for intervals - analgesics and antiemetics p.r.n. - zofran PRN for nausea - monitor labs in AM - CBC and BMP - bowel regimen: docusate/senna, polyethylene glycol - PT/OT eval and treat (2) Hypertension: Qualifiers: Hypertension type: primary hypertension Qualified Code(s): I10 - Essential (primary) hypertension Code(s): I10 - Essential (primary) hypertension Status: Chronic Assessment and Plan: - chronic, currently 133/76 - home medications: Hold lisinopril-hydrochlorothiazide. Continue amlodipine and metoprolol. - monitor Plan Diet: Regular GI Prophylaxis: Not currently indicated DVT Prophylaxis: SCDs, start Eliquis on 03/19 Lines: Peripheral Code Status: Full code HPI Date of Consult Consult date: 03/18/24 Requesting Physician: Da Hood MD Primary Care Provider: Fco Coker MD Consult Narrative Reason for consult: Medical Management Narrative: 74 y/o M presents here for a total right knee arthroplasty with PMH of AFib and hypertension. The patient presented here for surgical management of his severe medial compartment osteoarthritis of the right knee. He has previously underwent a left total knee arthroplasty in September of 2023. Recovery with uneventful and patient was happy with results. He reports pain and difference with ADLs, therefore he would like to proceed with a right total knee arthroplasty which was done today (03/18). Postoperatively he is reporting no significant pain, numbness or tingling, or nausea. Denies any recent changes to his medications or medical history. No further complaints. Preop VS: 98.5? F, HR 63, RR 18, 143/81, and 100% on RA. Preop workup: No leukocytosis, no anemia, creatinine 0.8 and GFR >60, A1c 5.1%. Review of Systems Review of Systems: All systems reviewed & are unremarkable except as noted in HPI and below [facility] Past Medical History Medical History (Updated 03/18/24 @ 20:09 by Naomi Finch APRN) Afib Diagnosis made by Auscultation many years ago. ECG, Holter monitor all negative. Unproven diagnosis. Dyslipidemia Hypertension Surgical History Surgical History (Updated 03/18/24 @ 16:13 by Naomi Finch APRN) History of left knee replacement History of right knee joint replacement (03/18/24) History of tonsillectomy Family History Family History Father Family history of Parkinson's disease Mother Family history of Alzheimer's disease Social History Social History Smoking packs per day: 1.5 Smoking cigarettes per day: 30.0 Years smoked: 5 Smoking pack-years: 7.50 Smoking status: Former smoker Tobacco type: cigarettes Smoking end date: 05/19/74 Additional smoking assessment comments: DENIES ANY FORM OF TOBACCO USE Alcohol intake: current Drinks per week: 24 Alcohol use details: BEER Substance use type: does not use Do You Feel Safe in your Home?: Yes Lack of Transportation: No Lack of Food: Never True Current Housing: Decline to Answer Concerned About Future Housing: Decline to Answer Difficulty Paying Gas/Electric Bills: Decline to Answer Difficulty Paying for Meds: Decline to Answer Currently Unemployed: Decline to Answer Education: Decline to Answer Difficulty w/ Childcare or Family Care: Decline to Answer Living arrangements: with family Occupation/Education: occupation Additional occupation/education comments: [employer] Spiritual care concerns: No Meds Home Medications and Allergies Home Medications Medication Instructions Recorded Confirmed Type amlodipine 5 mg tablet 5 mg PO DAILY 05/30/23 03/18/24 History lisinopril 20 1 tablet PO DAILY 05/30/23 03/18/24 History mg-hydrochlorothiazide 12.5 mg tablet metoprolol succinate 50 mg 50 mg PO DAILY 05/30/23 03/18/24 History tablet,extended release 24 hr cholecalciferol (vitamin D3) 125 125 mcg PO DAILY 09/01/23 03/18/24 History mcg (5,000 unit) tablet cyanocobalamin (vitamin B-12) 1,000 mcg PO DAILY 09/01/23 03/18/24 History 1,000 mcg capsule niacin 50 mg tablet 50 mg PO DAILY 09/01/23 03/18/24 History vitamin E 100 unit capsule 180 mg PO DAILY 09/01/23 03/18/24 History acetaminophen 500 mg tablet 1,000 mg PO Q6H #120 tabs 09/19/23 03/18/24 Rx ascorbate calcium (vitamin C) 500 500 mg PO DAILY 02/25/24 03/18/24 History mg tablet aspirin 81 mg capsule 81 mg PO DAILY 02/25/24 03/18/24 History meloxicam 7.5 mg tablet 7.5 mg PO DAILY 02/25/24 03/18/24 History omega 0-vqx-int-fish oil 60 mg-90 1 cap PO DAILY 02/25/24 03/18/24 History mg-500 mg capsule (Fish Oil) mupirocin 2 % topical ointment 1 applic topical BID #22 grams 03/03/24 03/18/24 Rx Allergies Allergy/AdvReac Type Severity Reaction Status Date / Time doxycycline Allergy Unknown Rash Verified 03/18/24 06:57 tetracycline Allergy Unknown Rash Verified 03/18/24 06:57 Vital Signs Vital Signs - 24 hr 03/18/24 07:00 03/18/24 11:15 03/18/24 11:45 Temperature 97.6 F 97.0 F L Pulse Rate 60 57 L 59 L Respiratory Rate 14 14 14 Blood Pressure 141/71 H 120/104 H 114/64 Pulse Oximetry 99 99 97 Oxygen Delivery Room Air Room Air Room Air 03/18/24 11:30 03/18/24 12:00 03/18/24 12:15 Temperature Pulse Rate 58 L 62 60 Respiratory Rate 14 15 12 Blood Pressure 109/79 142/57 H 132/70 Pulse Oximetry 100 97 100 Oxygen Delivery Room Air Room Air Room Air 03/18/24 12:30 03/18/24 12:45 03/18/24 13:00 Temperature Pulse Rate 65 58 L 64 Respiratory Rate 11 L 14 18 Blood Pressure 136/70 131/77 134/76 Pulse Oximetry 100 99 99 Oxygen Delivery Room Air Room Air Room Air 03/18/24 13:15 03/18/24 13:30 03/18/24 13:45 Temperature Pulse Rate 61 63 64 Respiratory Rate 14 12 15 Blood Pressure 134/79 125/71 127/85 Pulse Oximetry 100 99 98 Oxygen Delivery Room Air Room Air Room Air 03/18/24 14:00 03/18/24 14:15 03/18/24 14:30 Temperature Pulse Rate 62 65 64 Respiratory Rate 19 14 14 Blood Pressure 128/65 141/67 H 128/85 Pulse Oximetry 100 99 100 Oxygen Delivery Room Air Room Air Room Air 03/18/24 14:45 03/18/24 14:53 Temperature 97.6 F Pulse Rate 66 68 Respiratory Rate 20 16 Blood Pressure 126/81 133/76 Pulse Oximetry 99 98 Oxygen Delivery Room Air Room Air Exam Const: General: comfortable and no acute distress Other: , male, nontoxic appearance HENMT: Face/Nose/Sinus: Normal nares present Mouth: Yes moist mucous membranes Eyes: General: appearance normal, both eyes and all related structures Sclera: sclerae normal Pupils: Equal, round and reactive pupils present EOM: EOMs intact bilaterally Resp: Effort & Inspection: normal respiratory effort Auscultation: clear to auscultation bilaterally Cardio: Rate: regular rate Rhythm: abnormal rhythm Other: S1-S2 present without murmur, rub, ectopy Skin: General skin exam: normal color and no rashes or lesions noted Other: Postsurgical incision to right knee, CDI. Minimal underlying edema. Neuro: Speech: normal speech Motor exam (neuro): 5/5 motor strength present throughout Sensory Exam: normal sensation Other: A&O x4 Extrem: General: normal exam except as noted Psych: Mental Status: mental status grossly normal Affect: normal affect Other: Good insight and judgment, very pleasant Quality VTE Prophylaxis VTE prophylaxis: mechanical ordered and pharmacologic ordered Hospitalist [facility] Advance Care Plan I have confirmed that the patient's Advanced Care Plan is present, code status is documented, or surrogate decision maker is listed in patient medical record.: Yes Medication Reconciliation I have utilized all available resources to obtain, update and review the patients current medications (includes all prescriptions, OTC, herbals, cannabis, and nutritional supplements).: Yes
[2024-03-18] MEDS: VANCOMYCIN 1,000 MG/NS 250 ML 1,000 MG/250 ML BAG 250 MG IVPB (18:37)
[2024-03-18] MEDS: FAMOTIDINE 20 MG TABLET PO (20:00)
[2024-03-19] MEDS: ceFAZolin 2 GM/D5W 50 ML 2 GM/50 ML BAG IVPB ×2 (00:01→08:46)
[2024-03-19] MEDS: ACETAMINOPHEN 325 MG TABLET 650 MG PO ×2 (02:29→06:03)
[2024-03-19] MEDS: oxyCODONE HCL (*CRX) 5 MG TAB IR PO ×2 (02:29→06:03)
[2024-03-19 04:39] VITALS: BP 124/67; PULSE 72; RESP 16; TEMP 37; O2SAT 98
[2024-03-19] MEDS: VANCOMYCIN 1,000 MG/NS 250 ML 1,000 MG/250 ML BAG 250 MG IVPB (06:03)
[2024-03-19 06:23] LABS: Basophils Percent Auto 0.1 % (0.2-1.2); Hematocrit 35.1 % (42.0-52.0); Hemoglobin 12.1 g/dL (14.0-18.0); Immature Granulocyte Absolute 0.05 K/mm3 (0.00-0.031); Immature Granulocyte Percent A 0.4 % (0-0.5); Lymphocytes Absolute Auto 0.85 K/mm3 (0.9-3.2); Lymphocytes Percent Auto 7.6 % (18.3-44.2); Mean Corpuscular HGB Conc 34.5 g/dl (32-36); Mean Corpuscular Hemoglobin 31.7 pg (26-34); Mean Corpuscular Volume 91.9 fl (80-100); Mean Platelet Volume 9.4 fl (7.4-10.4); Monocytes Percent Auto 9.1 % (2.6-8.5); Neutrophils Absolute Auto 9.3 K/mm3 (1.3-6.7); Neutrophils Percent Auto 82.8 % (45.5-73.1); Platelet Count Result 186 k/mm3 (150-375); Red Blood Count 3.82 M/mm3 (4.6-6.20); Red Cell Distribution Width 12.4 % (11.5-14.5); White Blood Count 11.2 K/mm3 (4.5-10.0)
[2024-03-19 06:37] LABS: Anion Gap 6 mmol/L (4-12); Blood Urea Nitrogen 15 mg/dL (9-20); Calcium 8.3 mg/dL (8.4-10.2); Carbon Dioxide 26 mmol/L (22-30); Chloride 105 mmol/L (98-107); Estimated CRCL calculation 88 ml/min; Estimated Glomerular Filt Rate > 60; Glucose 127 mg/dL (65-110); Sodium 137 mmol/L (137-145)
--- NOTE | 2024-03-19 07:28 | P.PNOP_ITS ---
Subjective Subjective Date/Time Seen: 03/19/24 07:28 Interval history: Postop day 1 patient is alert. He is afebrile vital signs are stable. He is urinating well. He was up walking yesterday with physical therapy twice. He made multiple laps around the floor. Pain is very well controlled. Patient is comfortable. Morning labs are noted. Patient is eager to go home. He will work with Physical therapy this morning and if he continues to do well he will be discharged home. Neurovascularly is intact. Dressing is dry and intact. Objective Data Vital Signs Vital Signs: Vital Signs - 24 hr 03/18/24 11:15 03/18/24 11:45 03/18/24 11:30 Temperature 97.0 F L Pulse Rate 57 L 59 L 58 L Respiratory Rate 14 14 14 Blood Pressure 120/104 H 114/64 109/79 Pulse Oximetry 99 97 100 Oxygen Delivery Room Air Room Air Room Air 03/18/24 12:00 03/18/24 12:15 03/18/24 12:30 Temperature Pulse Rate 62 60 65 Respiratory Rate 15 12 11 L Blood Pressure 142/57 H 132/70 136/70 Pulse Oximetry 97 100 100 Oxygen Delivery Room Air Room Air Room Air 03/18/24 12:45 03/18/24 13:00 03/18/24 13:15 Temperature Pulse Rate 58 L 64 61 Respiratory Rate 14 18 14 Blood Pressure 131/77 134/76 134/79 Pulse Oximetry 99 99 100 Oxygen Delivery Room Air Room Air Room Air 03/18/24 13:30 03/18/24 13:45 03/18/24 14:00 Temperature Pulse Rate 63 64 62 Respiratory Rate 12 15 19 Blood Pressure 125/71 127/85 128/65 Pulse Oximetry 99 98 100 Oxygen Delivery Room Air Room Air Room Air 03/18/24 14:15 03/18/24 14:30 03/18/24 14:45 Temperature Pulse Rate 65 64 66 Respiratory Rate 14 14 20 Blood Pressure 141/67 H 128/85 126/81 Pulse Oximetry 99 100 99 Oxygen Delivery Room Air Room Air Room Air 03/18/24 14:53 03/18/24 14:54 03/18/24 15:09 Temperature 97.6 F 97.5 F L 98.0 F Pulse Rate 68 71 77 Respiratory Rate 16 20 20 Blood Pressure 133/76 103/61 121/57 L Pulse Oximetry 98 99 97 Oxygen Delivery Room Air 03/18/24 15:39 03/18/24 16:39 03/18/24 20:22 Temperature 98.3 F 98.5 F 97.9 F Pulse Rate 66 75 75 Respiratory Rate 18 20 16 Blood Pressure 119/92 H 126/66 123/74 Pulse Oximetry 100 97 97 Oxygen Delivery 03/18/24 20:00 03/18/24 23:40 03/19/24 04:39 Temperature 98.1 F 98.6 F Pulse Rate 72 72 Respiratory Rate 16 16 Blood Pressure 134/82 124/67 Pulse Oximetry 98 98 Oxygen Delivery Room Air Intake/Output Intake/Output: Intake & Output 03/16/24 03/17/24 03/18/24 03/19/24 23:59 23:59 23:59 23:59 Intake Total 990 500 Output Total 800 Balance 990 -300 Meds/Results Medications: Active Medications Generic Name Dose Route Start Last Admin Trade Name Freq PRN Reason Stop Dose Admin Acetaminophen 650 mg 03/18/24 15:00 03/19/24 06:03 Acetaminophen 325 Mg Tablet PO 650 mg Q4H AYDEE Administration Amlodipine Besylate 5 mg 03/19/24 09:00 Amlodipine Besylate 5 Mg Tablet PO DAILY [facility] Apixaban 2.5 mg 03/19/24 09:00 Apixaban 2.5 Mg Tablet PO 03/30/24 21:01 Q12HR AYDEE Celecoxib 200 mg 03/19/24 08:00 Celecoxib 200 Mg Capsule PO DAILY@0800 AYDEE Cephalexin HCl 500 mg 03/19/24 13:00 Cephalexin 500 Mg Capsule PO Q6HR AYDEE Cyanocobalamin 1,000 mcg 03/19/24 09:00 Cyanocobalamin 1,000 Mcg Tablet PO DAILY AYDEE Diphenhydramine HCl 25 mg 03/18/24 14:54 Diphenhydramine Hcl Inj 50 Mg/Ml Vial IV PUSH Q6H PRN Itching Famotidine 20 mg 03/18/24 21:00 03/18/24 20:00 Famotidine 20 Mg Tablet PO 20 mg Q12HR AYDEE Administration Vancomycin HCl 1,000 mg in 250 mls @ 250 mls/hr 03/18/24 19:00 03/19/24 06:03 Vancomycin 1,000 Mg/Ns 250 Ml IVPB 03/19/24 07:59 250 mls/hr Q12H AYDEE Administration Cefazolin Sodium 2 gm in 50 mls @ 100 mls/hr 03/18/24 17:00 03/19/24 00:01 Ancef 2 Gm/D5w 50 Ml IVPB 03/19/24 09:29 100 mls/hr Q8H AYDEE Administration Metoprolol Succinate 50 mg 03/19/24 09:00 Metoprolol Succinate Ext Rel 50 Mg Tabcr PO DAILY [facility] Morphine Sulfate 2 mg 03/18/24 14:54 Morphine Sulfate (*Crx) 2 Mg/Ml Inj IV PUSH Q2H PRN Breakthrough Pain Rated 4-6 or NPO Naloxone HCl 0.1 mg 03/18/24 14:54 Naloxone Hcl 0.4 Mg/Ml Vial IV PUSH Q2M PRN Opiate Reversal Niacin 50 mg 03/19/24 09:00 Niacin 50 Mg Tablet PO DAILY [facility] Ondansetron HCl 4 mg 03/18/24 14:54 Ondansetron Inj 4 Mg/2 Ml Vial IV PUSH Q4H PRN Nausea And Vomiting Oxycodone HCl 5 mg 03/18/24 15:00 03/19/24 06:03 Oxycodone Hcl (*Crx) 5 Mg Tab Ir PO 5 mg Q4H [facility] Administration Oxycodone HCl 5 mg 03/18/24 14:54 Oxycodone Hcl (*Crx) 5 Mg Tab Ir PO Q4H PRN Pain Rated 7-10 Polyethylene Glycol 17 gm 03/19/24 09:00 Polyethylene Glycol 3350 17 Gm Powd.Pack PO QAM [facility] Senna/Docusate Sodium 2 tab 03/18/24 17:00 03/18/24 16:04 Senna/Docusate Sodium Tablet PO 2 tab BID [facility] Administration Vitamin D 5,000 units 03/19/24 09:00 Cholecalciferol 5,000 Units Tablet PO DAILY [facility] Radiology Results: ITS Impressions Knee X-Ray 03/18/24 11:25 IMPRESSION: 1. Right total knee arthroplasty, negative for postoperative purposes. Labs Labs: Laboratory Results - last 24 hr 03/18/24 03/19/24 06:20 05:41 WBC 11.2 H RBC 3.82 L Hgb 12.1 L Hct 35.1 L MCV 91.9 MCH 31.7 MCHC 34.5 RDW 12.4 Plt Count 186 MPV 9.4 Immature Gran % (Auto) 0.4 Neut % (Auto) 82.8 H Lymph % (Auto) 7.6 L [place] % (Auto) 9.1 H Eos % (Auto) 0.0 Baso % (Auto) 0.1 L Lymph # (Auto) 0.85 L [place] # (Auto) 1.0 H Eos # (Auto) 0.0 Baso # (Auto) 0.0 Abs Immat Gran (auto) 0.05 H Absolute Neuts (auto) 9.3 H Absolute Nucleated RBC 0.000 Nucleated RBC % 0.0 Sodium 137 Potassium 4.0 Chloride 105 Carbon Dioxide 26 Anion Gap 6 BUN 15 Creatinine 0.70 Estim Creat Clear Calc 88 Estimated GFR > 60 Glucose 127 H Calcium 8.3 L Blood Type A Positive Antibody Screen Negative
--- NOTE | 2024-03-19 07:33 | P.DS_ITS ---
DS: Admitting Diagnosis Discharge Date 03/19 Admitting Diagnosis Right knee DJD DS: Discharge Diagnosis Discharge Diagnosis (1) Right knee DJD: Qualifiers: Osteoarthritis type: primary Qualified Code(s): M17.11 - Unilateral primary osteoarthritis, right knee Code(s): M17.11 - Unilateral primary osteoarthritis, right knee Status: Acute DS: Summary Hospital Course Hospital Course: 74-year-old male who underwent right total knee arthroplasty on 03/18. Underwent the procedure without complications. Postoperatively he has been afebrile vital signs are stable. He was up walking with physical therapy the day of surgery and was very comfortable. He is on Eliquis for DVT prophylaxis. He is on scheduled Tylenol every 4 hours and oxycodone 5 mg. He is on Celebrex 200 mg a day. Morning of postop day 1 patient was very alert. Neurovascularly he was intact. He was urinating well. Dressing dry was intact. Patient be discharged home on 03/19. He was advised to keep leg elevated home to prevent swelling. He has outpatient therapy starting on Friday. He will go home with a 10 day course of Keflex due to his positive nasal swab for oxacillin sensitive Staph aureus. He will also go home on Senokot and MiraLax. Patient was advised any questions or concerns he is to call the office. Time Spent with Patient Time attestation: Total time spent providing and/or coordinating discharge services: DS: Data Data Completed and Pending Labs on day of discharge: Labs from last 24 hours 03/19/24 03/18/24 05:41 06:20 WBC 11.2 H RBC 3.82 L Hgb 12.1 L Hct 35.1 L MCV 91.9 MCH 31.7 MCHC 34.5 RDW 12.4 Plt Count 186 MPV 9.4 Immature Gran % (Auto) 0.4 Neut % (Auto) 82.8 H Lymph % (Auto) 7.6 L [place] % (Auto) 9.1 H Eos % (Auto) 0.0 Baso % (Auto) 0.1 L Lymph # (Auto) 0.85 L [place] # (Auto) 1.0 H Eos # (Auto) 0.0 Baso # (Auto) 0.0 Abs Immat Gran (auto) 0.05 H Absolute Neuts (auto) 9.3 H Absolute Nucleated RBC 0.000 Nucleated RBC % 0.0 Sodium 137 Potassium 4.0 Chloride 105 Carbon Dioxide 26 Anion Gap 6 BUN 15 Creatinine 0.70 Estim Creat Clear Calc 88 Estimated GFR > 60 Glucose 127 H Calcium 8.3 L Blood Type A Positive Antibody Screen Negative Discharge Plan Discharge Patient Disposition: Home, Self-Care Discharge Instructions: DA HOOD M.D [facility] [address] [address] [place] [address] POST-OPERATIVE DISCHARGE INSTRUCTIONS TOTAL KNEE ARTHROPLASTY 1. When resting, do not rest in the chair.When resting, lie on your back, with back flat on the couch or bed, with leg elevated above heart to minimize swelling. You may put a pillow under your head. . Significant swelling could indicate a blood clot and if this occurs call the office (or go to the ER) to have a venous ultrasound. Therefore, do not rest in a chair. 2. At least five times a day spend several minutes stretching your knee into flexion while sitting in the chair and also stretching your knee out straight The abilities to bend your knee fully and straighten your knee fully are two most important knee functions to focus on during your recovery. 3. It is ok to sit in chair to eat, use the toilet and receive a guest and to do your stretching exercises, but, sitting in a chair will cause your leg to sw ell. Therefore, avoid additional time sitting in the chair. and don't rest in the chair. 4. Wound Care: Nursing will give you an additional Mepilex dressing at the time of discharge. Patient to remove the dressing and apply a new Mepilex dressing at home 7 days after surgery and leave the dressing on until seen in office. It is normal to see a small amount of blood on the silver pad of the Mepilex dressing. Its designed to hold small spots of blood. However, if the blood reaches the edge of the pad up to the boarder of the clear membrane that surrounds the pad, the pad is saturated and the Mepilex dressing should be removed and a new Mepilex dressing should be applied. 5. May shower with a Mepilex dressing in place.The water will run off the dressing. 6. Unless you are told otherwise, you may put full weight on your operated leg. Use a walker for balance and practice walking as normally as you can, ideally for a few minutes every hour while you are awake. 7. I would advise against putting ice packs on your knee incision. Ice constricts blood flow which can impar healing of the knee incision. IMPORTANT: Remember not to sit in the chair for more than 30 minutes at a time. As a rule, during the first 14 days after surgery, only sit in the chair to work on the chair knee bending stretch exercise, for meals or for use of the restroom. Sitting in the chair promotes significant swelling in the knee and leg which will make your knee stiff and more painful and which simulates having a blood clot in the veins of the leg. If this type of significant diffuse swelling occurs, an ultrasound at the hospital will be necessary to rule out a blood clot. Be up walking around with the walker for a few minutes every hour while awake and then rest laying on your back on the couch or in bed with your leg elevated on cushions or pillows. Do not rest in the chair. Stand Alone Forms: General Discharge Instructions Follow-up/Referrals: Da Hood MD [Physician] - Keep Reg. Scheduled Appt. Discharge Medications: New acetaminophen 325 mg Tablet 650 mg PO Q4H Qty: 90 0RF Eliquis 2.5 mg Tablet 2.5 mg PO Q12HR Qty: 28 0RF celecoxib [Celebrex] 200 mg Capsule 200 mg PO DAILY@0800 Qty: 60 0RF polyethylene glycol 3350 [Miralax] 17 gram Powder In Packet 17 g PO QAM Qty: 30 0RF sennosides-docusate sodium [Senokot-S] 8.6-50 mg Tablet 2 tab PO BID Qty: 60 0RF cephalexin 500 mg Capsule 500 mg PO Q6HR Qty: 40 0RF oxycodone 5 mg Tablet 5 mg PO Q4H PRN (Reason: Pain Rated 7-10) Qty: 40 0RF Continued omega 7-wfd-sew-fish oil [Fish Oil] 60-90-500 mg capsule 1 cap PO DAILY ascorbate calcium (vitamin C) 500 mg tablet 500 mg PO DAILY metoprolol succinate 50 mg tablet extended release 24 hr 50 mg PO DAILY amlodipine 5 mg tablet 5 mg PO DAILY lisinopril-hydrochlorothiazide 20-12.5 mg tablet 1 tablet PO DAILY cholecalciferol (vitamin D3) 125 mcg (5,000 unit) Tablet 125 mcg PO DAILY vitamin E 100 unit Capsule 180 mg PO DAILY Hold Instructions: Resume on 10/03/23. may increase risk of bleeding while on Eliquis. May resume after Eliquis completed niacin 50 mg Tablet 50 mg PO DAILY cyanocobalamin (vitamin B-12) 1,000 mcg Capsule 1,000 mcg PO DAILY Discontinued meloxicam 7.5 mg tablet 7.5 mg PO DAILY aspirin 81 mg capsule 81 mg PO DAILY acetaminophen 500 mg Tablet 1,000 mg PO Q6H Qty: 120 0RF mupirocin 2 % ointment 1 applic topical BID Qty: 22 0RF Attending physician on admission: Da Hood
[2024-03-19 08:36] VITALS: PULSE 72
[2024-03-19] MEDS: NIACIN 50 MG TABLET PO (08:36)
[2024-03-19] MEDS: CHOLECALCIFEROL 5,000 UNITS TABLET 5000 UNITS PO (08:36)
[2024-03-19] MEDS: CELECOXIB 200 MG CAPSULE PO (08:36)
[2024-03-19] MEDS: FAMOTIDINE 20 MG TABLET PO (08:36)
[2024-03-19] MEDS: SENNA/DOCUSATE SODIUM TABLET 2 TAB PO (08:36)
[2024-03-19] MEDS: CYANOCOBALAMIN 1,000 MCG TABLET 1000 MCG PO (08:36)
[2024-03-19] MEDS: APIXABAN 2.5 MG TABLET PO (08:36)
[2024-03-19] MEDS: METOPROLOL SUCCINATE EXT REL 50 MG TABCR PO (08:36)
[2024-03-19] MEDS: polyethylene glycoL 3350 17 GM POWD.PACK PO (08:37)
[2024-03-19] MEDS: amLODIPine BESYLATE 5 MG TABLET PO (08:37)
[2024-03-19 08:39] VITALS: BP 116/60; PULSE 65; RESP 20; TEMP 36.9; O2SAT 97
== END 2024-03-19 09:35 | disposition home or self-care (01) ==
LOC: ANHSURGERY 05:53 → ANH3MEDSUR 14:59
PROVIDERS: Physician Assistant Surgical; PCP Family Medicine; Visit Provider Orthopaedic Surgery
PROC: (CPT 27447; principal; 2024-03-18 07:30)
DX: M17.11 Unilateral primary osteoarthritis, right knee (principal); I48.91 Unspecified atrial fibrillation; I10 Essential (primary) hypertension; Z87.891 Personal history of nicotine dependence
CPT/HCPCS: 27447; 36415; 73560; 80048; 85025; 86850; 86900; 86901; 97110; 97161; 97165; A9270; C1713; C1776; J0171; J0690; J1100; J1885; J2250; J2270; J2704; J2795; J3010; J3370; J7030; J7120

== ENCOUNTER 2024-04-28 11:14 | Outpatient (CLI) | payer MEDICARE, SELFPAY ==
--- NOTE | ~2024-04-28 | US_ITS ---
RIGHT LOWER EXTREMITY VENOUS ULTRASOUND Ordering provider: Da Hood MD History: . R60.0 - Localized edema . Comparison: None. FINDINGS: --COMMON FEMORAL: Patent and free of thrombus. Normal compressibility, phasic flow and augmentation. --PROXIMAL SUPERFICIAL FEMORAL: Patent and free of thrombus. Normal compressibility, phasic flow and augmentation. --DISTAL SUPERFICIAL FEMORAL: Patent and free of thrombus. Normal compressibility, phasic flow and au gmentation. --POPLITEAL: Patent and free of thrombus. Normal compressibility, phasic flow and augmentation. --POSTERIOR TIBIAL: Patent and free of thrombus. Normal compressibility, phasic flow and augmentation . Right inguinal lymph node is seen measuring 2.2 x 0.8 x 2.1 cm. IMPRESSION: Negative right lower extremity venous US. No deep vein thrombosis. Reviewed, dictated and finalized at location A. NEYMAN WELDER
== END 2024-04-28 11:15 | disposition home or self-care (01) ==
PROVIDERS: PCP Family Medicine; Visit Provider Orthopaedic Surgery
DX: R60.0 Localized edema (principal)
CPT/HCPCS: 93971